=== PATIENT | female | born 1990 | race Caucasian/White ===

== ENCOUNTER 2018-03-12 10:21 | Emergency (ER) | payer OTHER ==
[~2018-03-12] VITALS: Ht 154.9 cm; Wt 61.2 kg
[~2018-03-12 10:21] MED LIST: ALBUTEROL0.09 MG/A2 IH; ANAPROX DS550 MG PO; BACTRIM DS 8001 TA1 PO; CIPRO500 MG PO; MACROBID100 M1 PO; MOTRIN400 MG PO; MOTRIN800 MG PO; NKHM; ONDANSETRON H2 MG/ML PO; PANTOPRAZOLE SO40 MG PO; PREDNISONE20 M1 PO; PREDNISONE20 MG PO; PYRIDIUM200 MG PO; THERA TABS1 TAB PO; ULTRAM50 MG PO; VICODIN ES 7501 TA1 PO; VYVANSE50 MG PO; XYLOCAINE VISCO20 ML MM; ZANTAC 150150 MG PO; ZITHROMAX250 MG PO; ZOFRAN ODT4 MG SL
[2018-03-12 11:15] LABS: BILIRUBIN NEGATIVE (NEGATIVE); BLOOD NEGATIVE (NEGATIVE); CLARITY SL CLOUDY (CLEAR); COLOR YELLOW (YELLOW); GLUCOSE NEGATIVE (NEGATIVE); KETONE NEGATIVE (NEGATIVE); LEUKO ESTERASE 1+ (NEGATIVE); NITRITE NEGATIVE (NEGATIVE); PH 5.5 (5.0-9.0); SPECIFIC GRAVITY >= 1.030 (1.005-1.030); UROBILINOGEN 0.2 E.U./dl (0.2-1.0)
[2018-03-12 11:30] LABS: BACTERIA TRACE
[2018-03-12] MEDS ORDERED: TESSALON PERLE100 M1 PO (12:00)
[2018-03-12] MEDS ORDERED: PREDNISONE20 M1 PO (12:00)
[2018-03-12] MEDS ORDERED: ZITHROMAX250 MG PO (12:00)
[2018-03-12] MEDS ORDERED: PROVENTIL HFA6.7 GM INH (12:00)
== END 2018-03-12 12:43 | disposition home or self-care (01) ==
LOC: ED 10:21
PROVIDERS: Physician Assistant
DX: J40 Bronchitis, not specified as acute or chronic (principal); F17.200 Nicotine dependence, unspecified, uncomplicated; Z88.0 Allergy status to penicillin; Z88.1 Allergy status to other antibiotic agents; Z79.899 Other long term (current) drug therapy

== ENCOUNTER 2018-04-27 16:19 | Emergency (ER) | payer OTHER ==
[~2018-04-27] VITALS: Ht 154.9 cm; Wt 61.2 kg
[~2018-04-27 16:19] MED LIST changes: +PROVENTIL HFA6.7 GM INH; +TESSALON PERLE100 M1 PO
[2018-04-27] MEDS ORDERED: ZITHROMAX250 MG PO (17:33)
== END 2018-04-27 17:24 | disposition home or self-care (01) ==
LOC: ED 16:19
DX: J02.9 Acute pharyngitis, unspecified (principal); R09.81 Nasal congestion; F17.200 Nicotine dependence, unspecified, uncomplicated; Z88.0 Allergy status to penicillin; Z88.1 Allergy status to other antibiotic agents; Z79.899 Other long term (current) drug therapy

== ENCOUNTER 2018-12-03 11:31 | Emergency (ER) | payer OTHER ==
[~2018-12-03] VITALS: Wt 61.2 kg
== END 2018-12-03 12:25 | disposition home or self-care (01) ==
LOC: ED 11:31
DX: J06.9 Acute upper respiratory infection, unspecified (principal); J44.9 Chronic obstructive pulmonary disease, unspecified; F17.200 Nicotine dependence, unspecified, uncomplicated; Z79.899 Other long term (current) drug therapy; Z88.0 Allergy status to penicillin; Z88.1 Allergy status to other antibiotic agents

== ENCOUNTER 2019-01-21 15:59 | Emergency (ER) | payer OTHER ==
[~2019-01-21] VITALS: Ht 154.9 cm; Wt 62.6 kg
[2019-01-21] MEDS ORDERED: ZYRTEC10 MG PO (16:20)
== END 2019-01-21 16:31 | disposition home or self-care (01) ==
LOC: ED 15:59
DX: J04.0 Acute laryngitis (principal); H66.92 Otitis media, unspecified, left ear; J45.909 Unspecified asthma, uncomplicated; F17.200 Nicotine dependence, unspecified, uncomplicated; Z88.0 Allergy status to penicillin; Z88.1 Allergy status to other antibiotic agents; Z79.899 Other long term (current) drug therapy

== ENCOUNTER 2019-05-08 10:02 | Emergency (ER) | payer SELFPAY ==
[~2019-05-08 10:02] MED LIST changes: +ZYRTEC10 MG PO
[2019-05-08 11:07] LABS: CLARITY SL CLOUDY (CLEAR); COLOR YELLOW (YELLOW); GLUCOSE NEGATIVE (NEGATIVE)
[2019-05-08 11:08] LABS: BILIRUBIN NEGATIVE (NEGATIVE); BLOOD NEGATIVE (NEGATIVE); KETONE 2+ (NEGATIVE); LEUKO ESTERASE NEGATIVE (NEGATIVE); NITRITE NEGATIVE (NEGATIVE); SPECIFIC GRAVITY 1.025 (1.005-1.030); UROBILINOGEN 0.2 E.U./dl (0.2-1.0)
[2019-05-08 11:15] LABS: BACTERIA 3+; EPITHELIAL CELLS TNTC
[2019-05-08 11:47] LABS: BASO % 0.6 % (0.0-1.0); EOS # 0.2 10*3/uL (0.0-0.4); EOS % 2.5 % (1.0-4.0); HEMOGLOBIN 13.2 g/dl (12.0-16.0); LYMPH # 1.7 10*3/uL (1.3-4.4); LYMPH % 24.4 % (27.0-41.0); MEAN CELL VOLUME 96.2 fl (81.0-99.0); MEAN CORPUSCULAR HGB 31.7 pg (27.0-31.0); MEAN PLATELET VOLUME 10.2 fl (9.6-12.3); MONO # 0.8 10*3/uL (0.1-1.0); NEUT # 4.2 10*3/uL (2.3-7.9); NEUT % 61.2 % (47.0-73.0); PLATELET COUNT AUTOMATED 245 10*3/uL (130-400); RED BLOOD COUNT 4.16 10*6/uL (4.10-5.10); RED CELL DISTRI WIDTH 12.1 % (0-14.5); WHITE BLOOD COUNT 6.8 10*3/uL (4.8-10.8)
[2019-05-08 11:57] LABS: BUN 17 mg/dl (7-24); CHLORIDE 108 mmol/L (98-107); CREATININE 0.86 mg/dL (0.55-1.02); SODIUM 140 mmol/L (136-145)
[2019-05-08] MEDS ORDERED: ZITHROMAX250 MG PO (15:26)
== END 2019-05-08 15:40 | disposition home or self-care (01) ==
LOC: ED 10:02
PROVIDERS: Emergency Medicine
DX: N89.8 Other specified noninflammatory disorders of vagina (principal); J45.909 Unspecified asthma, uncomplicated; G43.909 Migraine, unspecified, not intractable, without status migrainosus; F17.200 Nicotine dependence, unspecified, uncomplicated; Z79.899 Other long term (current) drug therapy; Z88.0 Allergy status to penicillin; Z88.1 Allergy status to other antibiotic agents

== ENCOUNTER 2020-02-15 04:50 | Emergency (ER) | payer SELFPAY ==
[~2020-02-15] VITALS: Ht 152.4 cm; Wt 72.6 kg
[2020-02-15] MEDS ORDERED: NAPROSYN500 MG PO (05:48)
== END 2020-02-15 06:11 | disposition home or self-care (01) ==
LOC: ED 04:50
DX: R07.89 Other chest pain (principal); F41.9 Anxiety disorder, unspecified; Z88.8 Allergy status to other drugs, medicaments and biological substances; Z79.899 Other long term (current) drug therapy

== ENCOUNTER 2021-03-24 22:58 | Emergency (ER) | payer BC ==
[~2021-03-24] VITALS: Ht 154.9 cm; Wt 70.3 kg
[~2021-03-24 22:58] MED LIST changes: +NAPROSYN500 MG PO
[2021-03-24] MEDS ORDERED: CLINDAMYCIN HC300 MG PO (23:39)
== END 2021-03-25 00:31 | disposition home or self-care (01) ==
LOC: ED 22:58
DX: K04.7 Periapical abscess without sinus (principal); J45.909 Unspecified asthma, uncomplicated; G43.909 Migraine, unspecified, not intractable, without status migrainosus; Z88.0 Allergy status to penicillin; Z88.1 Allergy status to other antibiotic agents; Z79.899 Other long term (current) drug therapy; Z87.891 Personal history of nicotine dependence; Z90.49 Acquired absence of other specified parts of digestive tract